=== PATIENT | female | born 1960 | race African-American/Black ===

== ENCOUNTER 2020-07-08 05:41 | Observation (INO) ==
[2020-07-08 06:48] LABS: Bacteria,Urine Occasional /HPF (Few); Bilirubin,Urine Negative (Negative); Blood, Urine Negative (Negative); Glucose,Urine (UA) Negative (Negative); Ketones,Urine Negative (Negative); Mucus,Urine Occasional /LPF (Occasional); Nitrite,Urine Negative (Negative); Protein,Urine Negative; RBC,Urine 2 /HPF (0-4); Squamous Epithelial Cell,Urine Occasional /HPF (0-10); Urine Appearance CLEAR (Clear); Urine Color Yellow (Yellow); Urine Specific Gravity 1.013 (1.001-1.035); Urine Urobilinogen < 2.0 EU/DL (0.2-1.0)
[2020-07-08 06:52] LABS: Basophils % 0.4 % (0.0-0.8); Eosinophils # 0.2 10*3/uL (0.0-0.87); Eosinophils % 2.9 % (0.00-10.9); Hematocrit 39.2 VOL% (35.7-47.0); Hemoglobin 12.2 GM/DL (12.0-16.0); Immature Granulocytes % 0.1 %; Immature Granulocytes Absolute 0.01 #; Lymphocytes % 27.1 % (21.3-54.2); Mean Corpuscular HGB Conc 31.1 GM/DL (32-36); Mean Corpuscular Volume 82.2 FL (87-102); Monocytes % 6.3 % (1.7-12.7); Neutrophils % 63.2 % (38.7-73.9); Platelet Count 268 T/CUMM (130-400); Red Blood Count 4.77 MC/CUMM (3.8-5.5); Red Cell Distribution Width 15.7 % (9.3-17.3); White Blood Count 7.3 T/CUMM (4-12)
[2020-07-08 07:03] LABS: Albumin 3.1 G/DL (3.4-5.0); Bilirubin,Total 1.1 MG/DL (0.2-1.0); Calcium 9.1 MG/DL (8.5-10.1); Osmolality,Calculated 280.3 MOS/KG (273-304); Total Protein 6.5 G/DL (6.4-8.3)
[2020-07-08] MEDS ORDERED: DEXTROSE 50% 25 GM/50 ML VIAL IV PRN (10:34)
[2020-07-08] MEDS ORDERED: BISACODYL 5 MG TABLET PO PRN (10:34)
[2020-07-08] MEDS ORDERED: GLUCAGON 1 MG VIAL IM PRN (10:34)
[2020-07-08] MEDS ORDERED: guaiFENesin/DM ER 600-30 MG TABLET PO PRN (10:34)
[2020-07-08] MEDS ORDERED: ACETAMINOPHEN 325 MG TABLET PO PRN (10:34)
[2020-07-08] MEDS ORDERED: hydrALAZINE 20 MG/1 ML VIAL IV STA (10:35)
[2020-07-08] MEDS ORDERED: hydrALAZINE 20 MG/1 ML VIAL ONE (10:37)
[2020-07-08] MEDS ORDERED: ALUM/MAG/SIMETH/LIDO VISC 1:1 30 ML BOTTLE PO STA (10:38)
[2020-07-08 12:24] LABS: Thyroid Stimulating Hormone 1.88 uIU/ml (0.358-3.74); VLDL CHOLESTEROL 6.6 MG/DL
[2020-07-08] MEDS: ENOXAPARIN 40 MG/0.4 ML SYRINGE SUBCUT SCH (13:10)
[2020-07-08] MEDS: SODIUM CHLORIDE 0.9% 1,000 ML IV SCH ×2 (13:11→23:06)
[2020-07-08] MEDS ORDERED: ATORVASTATIN 20 MG TABLET PO SCH (21:00)
[2020-07-08] MEDS ORDERED: ASPIRIN EC 81 MG TABLET PO SCH (21:00)
[2020-07-08] MEDS ORDERED: lisinopriL 20 MG TABLET PO SCH (22:30)
[2020-07-09] MEDS: ONDANSETRON 4 MG/2 ML VIAL IV PRN ×2 (03:11→08:49)
[2020-07-09] MEDS: SODIUM CHLORIDE 0.9% 1,000 ML IV SCH ×2 (06:43→15:33)
[2020-07-09 06:51] LABS: Basophils % 0.4 % (0.0-0.8); Eosinophils # 0.1 10*3/uL (0.0-0.87); Eosinophils % 1.7 % (0.00-10.9); Hematocrit 37.9 VOL% (35.7-47.0); Hemoglobin 11.7 GM/DL (12.0-16.0); Immature Granulocytes % 0.2 %; Immature Granulocytes Absolute 0.01 #; Lymphocytes # 1.1 10*3/uL (1.4-4.0); Lymphocytes % 20.9 % (21.3-54.2); Mean Corpuscular HGB Conc 30.9 GM/DL (32-36); Mean Corpuscular Volume 82.6 FL (87-102); Mean Platelet Volume 10.2 FL (9.6-12.0); Monocytes % 7.4 % (1.7-12.7); Neutrophils % 69.4 % (38.7-73.9); Platelet Count 249 T/CUMM (130-400); Red Blood Count 4.59 MC/CUMM (3.8-5.5); White Blood Count 5.3 T/CUMM (4-12)
[2020-07-09 07:19] LABS: Calcium 8.3 MG/DL (8.5-10.1); Osmolality,Calculated 279.3 MOS/KG (273-304)
[2020-07-09] MEDS ORDERED: ZINC GLUCONATE 50 MG TABLET PO SCH (09:00)
[2020-07-09] MEDS ORDERED: OMEGA 3 ACID ETHYL ESTERS 1 GM CAPSULE PO SCH (09:00)
[2020-07-09] MEDS ORDERED: MULTIVITAMIN (CENTRUM) TABLET PO SCH (09:00)
[2020-07-09] MEDS ORDERED: CHOLECALCIFEROL 1,000 UNIT TABLET PO SCH (09:00)
[2020-07-09] MEDS ORDERED: ASCORBIC ACID 500 MG TABLET PO SCH (09:00)
[2020-07-09] MEDS ORDERED: PANTOPRAZOLE 40 MG TABLET PO SCH (09:00)
[2020-07-09 13:10] VITALS: BP 117/78
[2020-07-09] MEDS: ENOXAPARIN 40 MG/0.4 ML SYRINGE SUBCUT SCH (15:33)
== END 2020-07-09 15:33 | disposition home or self-care (01) ==
LOC: N.ED 05:41 → N.EDINP 05:41 → N.4E 12:38
PROVIDERS: ADMIT Internal Medicine; ATTEND Internal Medicine

== ENCOUNTER 2020-10-11 09:49 | Observation (INO) ==
[2020-10-11 10:31] LABS: Basophils % 0.2 % (0.0-0.8); Eosinophils # 0.1 10*3/uL (0.0-0.87); Hematocrit 48.6 VOL% (35.7-47.0); Hemoglobin 15.2 GM/DL (12.0-16.0); Immature Granulocytes % 0.6 %; Immature Granulocytes Absolute 0.08 #; Lymphocytes # 2.9 10*3/uL (1.4-4.0); Mean Corpuscular HGB Conc 31.3 GM/DL (32-36); Mean Corpuscular Volume 83.8 FL (87-102); Mean Platelet Volume 9.5 FL (9.6-12.0); Monocytes % 5.5 % (1.7-12.7); Neutrophils % 72.7 % (38.7-73.9); Platelet Count 383 T/CUMM (130-400); Red Cell Distribution Width 14.3 % (9.3-17.3); White Blood Count 14.5 T/CUMM (4-12)
[2020-10-11 11:00] LABS: Calcium 8.7 MG/DL (8.5-10.1); Osmolality,Calculated 281.4 MOS/KG (273-304); Potassium 3.8 MMOL/L (3.5-5.1)
[2020-10-11 14:41] LABS: Bilirubin,Urine Negative (Negative); Blood, Urine Negative (Negative); Glucose,Urine (UA) Negative (Negative); Ketones,Urine Negative (Negative); Mucus,Urine Moderate /LPF (Occasional); Nitrite,Urine Negative (Negative); Protein,Urine Negative; RBC,Urine <1 /HPF (0-4); Squamous Epithelial Cell,Urine Occasional /HPF (0-10); Urine Appearance CLEAR (Clear); Urine Color Yellow (Yellow); Urine Specific Gravity 1.019 (1.001-1.035); Urine Urobilinogen < 2.0 EU/DL (0.2-1.0); WBC,Urine 2 /HPF (0-6)
[2020-10-11] MEDS ORDERED: ACETAMINOPHEN 325 MG TABLET PO PRN (15:59)
[2020-10-11] MEDS ORDERED: GLUCAGON 1 MG VIAL IM PRN (15:59)
[2020-10-11] MEDS ORDERED: ONDANSETRON 4 MG/2 ML VIAL IV PRN (15:59)
[2020-10-11] MEDS ORDERED: hydrALAZINE 20 MG/1 ML VIAL IV PRN (15:59)
[2020-10-11] MEDS ORDERED: DEXTROSE 50% 25 GM/50 ML VIAL IV PRN (15:59)
[2020-10-11] MEDS ORDERED: DOCUSATE SODIUM 100 MG CAPSULE PO PRN (15:59)
[2020-10-11] MEDS: SODIUM CHLORIDE 0.9% 1,000 ML IV SCH (18:16)
[2020-10-11] MEDS: INSULIN REGULAR 100 UNIT/ML SUBCUT SCH (18:16)
[2020-10-11] MEDS: ENOXAPARIN 40 MG/0.4 ML SYRINGE SUBCUT SCH (18:16)
[2020-10-12] MEDS: INSULIN REGULAR 100 UNIT/ML SUBCUT SCH ×5 (01:35→21:46)
[2020-10-12] MEDS: SODIUM CHLORIDE 0.9% 1,000 ML IV SCH ×2 (06:05→07:25)
[2020-10-12 06:15] LABS: Basophils % 0.3 % (0.0-0.8); Eosinophils # 0.1 10*3/uL (0.0-0.87); Eosinophils % 0.9 % (0.00-10.9); Hematocrit 40.9 VOL% (35.7-47.0); Hemoglobin 12.6 GM/DL (12.0-16.0); Immature Granulocytes % 0.5 %; Immature Granulocytes Absolute 0.07 #; Lymphocytes # 2.9 10*3/uL (1.4-4.0); Lymphocytes % 21.5 % (21.3-54.2); Mean Corpuscular HGB Conc 30.8 GM/DL (32-36); Mean Corpuscular Volume 85.4 FL (87-102); Mean Platelet Volume 9.6 FL (9.6-12.0); Monocytes % 6.1 % (1.7-12.7); Neutrophils % 70.7 % (38.7-73.9); Platelet Count 298 T/CUMM (130-400); Red Blood Count 4.79 MC/CUMM (3.8-5.5); Red Cell Distribution Width 14.2 % (9.3-17.3); White Blood Count 13.6 T/CUMM (4-12)
[2020-10-12 06:56] LABS: Albumin 2.4 G/DL (3.4-5.0); Bilirubin,Total 0.5 MG/DL (0.2-1.0); Calcium 8.2 MG/DL (8.5-10.1); Osmolality,Calculated 278.5 MOS/KG (273-304); Risk Ratio 2.02; Thyroid Stimulating Hormone 1.17 uIU/ml (0.358-3.74); Total Protein 5.1 G/DL (6.4-8.3); VLDL CHOLESTEROL 9.4 MG/DL
[2020-10-12] MEDS: PANTOPRAZOLE 40 MG TABLET PO SCH (09:28)
[2020-10-12 10:54] LABS: Troponin I < 0.015 NG/ML (0.00-0.045)
[2020-10-12 13:00] LABS: Troponin I < 0.015 NG/ML (0.00-0.045)
[2020-10-12] MEDS: ENOXAPARIN 40 MG/0.4 ML SYRINGE SUBCUT SCH (17:07)
[2020-10-12] MEDS: ATORVASTATIN 20 MG TABLET PO SCH (20:26)
[2020-10-12] MEDS: ASPIRIN EC 81 MG TABLET PO SCH (20:26)
[2020-10-12] MEDS: lisinopriL 20 MG TABLET PO SCH (20:26)
[2020-10-13 04:42] LABS: Basophils % 0.3 % (0.0-0.8); Eosinophils # 0.2 10*3/uL (0.0-0.87); Eosinophils % 1.9 % (0.00-10.9); Hematocrit 35.8 VOL% (35.7-47.0); Hemoglobin 10.9 GM/DL (12.0-16.0); Immature Granulocytes % 0.3 %; Immature Granulocytes Absolute 0.03 #; Lymphocytes # 2.8 10*3/uL (1.4-4.0); Lymphocytes % 26.6 % (21.3-54.2); Mean Corpuscular HGB Conc 30.4 GM/DL (32-36); Mean Corpuscular Volume 85.6 FL (87-102); Mean Platelet Volume 9.6 FL (9.6-12.0); Monocytes % 7.8 % (1.7-12.7); Neutrophils % 63.1 % (38.7-73.9); Platelet Count 271 T/CUMM (130-400); Red Blood Count 4.18 MC/CUMM (3.8-5.5); Red Cell Distribution Width 14.1 % (9.3-17.3); White Blood Count 10.4 T/CUMM (4-12)
[2020-10-13 04:59] LABS: Calcium 7.9 MG/DL (8.5-10.1); Osmolality,Calculated 280.3 MOS/KG (273-304); Potassium 3.9 MMOL/L (3.5-5.1)
[2020-10-13 05:04] LABS: Albumin 2.4 G/DL (3.4-5.0); Calcium 7.7 MG/DL (8.5-10.1); Osmolality,Calculated 280.3 MOS/KG (273-304); Potassium 3.9 MMOL/L (3.5-5.1)
[2020-10-13] MEDS: INSULIN REGULAR 100 UNIT/ML SUBCUT SCH ×4 (08:13→23:20)
[2020-10-13] MEDS: PANTOPRAZOLE 40 MG TABLET PO SCH (08:14)
[2020-10-13] MEDS: SODIUM CHLORIDE 0.9% 1,000 ML IV SCH ×2 (12:54→23:21)
[2020-10-13] MEDS: ENOXAPARIN 40 MG/0.4 ML SYRINGE SUBCUT SCH (17:53)
[2020-10-13] MEDS: lisinopriL 20 MG TABLET PO SCH (21:00)
[2020-10-13] MEDS: ATORVASTATIN 20 MG TABLET PO SCH (21:00)
[2020-10-13] MEDS: ASPIRIN EC 81 MG TABLET PO SCH (21:00)
[2020-10-14 06:41] LABS: Basophils % 0.4 % (0.0-0.8); Eosinophils # 0.2 10*3/uL (0.0-0.87); Eosinophils % 1.9 % (0.00-10.9); Hematocrit 35.6 VOL% (35.7-47.0); Hemoglobin 10.8 GM/DL (12.0-16.0); Immature Granulocytes % 0.2 %; Immature Granulocytes Absolute 0.02 #; Lymphocytes # 2.8 10*3/uL (1.4-4.0); Lymphocytes % 31.5 % (21.3-54.2); Mean Corpuscular HGB Conc 30.3 GM/DL (32-36); Mean Corpuscular Volume 85.2 FL (87-102); Monocytes % 6.5 % (1.7-12.7); Neutrophils % 59.5 % (38.7-73.9); Platelet Count 267 T/CUMM (130-400); Red Blood Count 4.18 MC/CUMM (3.8-5.5); Red Cell Distribution Width 13.9 % (9.3-17.3); White Blood Count 8.9 T/CUMM (4-12)
[2020-10-14 06:51] LABS: Calcium 8.3 MG/DL (8.5-10.1); Osmolality,Calculated 284.8 MOS/KG (273-304); Potassium 3.6 MMOL/L (3.5-5.1)
[2020-10-14] MEDS: INSULIN REGULAR 100 UNIT/ML SUBCUT SCH ×2 (08:52→12:13)
[2020-10-14] MEDS: PANTOPRAZOLE 40 MG TABLET PO SCH (08:52)
[2020-10-14 10:56] VITALS: BP 117/74
== END 2020-10-14 13:16 | disposition home or self-care (01) ==
LOC: EDUNIT# → EDBD → N.EDINP 09:49 → N.ED 09:49 → SUATTDRO 15:59 → N.TELEN 17:06
PROVIDERS: ADMIT Emergency Medicine; ATTEND Internal Medicine